=== PATIENT | male | born 2000 | race Hispanic/Latino ===

== ENCOUNTER 2024-09-21 13:42 | Emergency (ER) | payer OTHER ==
[2024-09-21] MEDS ORDERED: Meclizine HCl 25 MG TAB ONE (14:13)
== END 2024-09-21 14:25 | disposition home or self-care (01) ==
LOC: NAV ERS 13:42
DX: R42 Dizziness and giddiness (principal); H55.00 Unspecified nystagmus; R29.700 NIHSS score 0
CPT/HCPCS: 36416; 99284